=== PATIENT | male | born 1980 | race American Indian/Alaskan Native ===

== ENCOUNTER 2021-12-23 11:25 | Emergency (ER) | payer SELFPAY ==
--- NOTE | 2021-12-23 12:12 | XRay Report ---
CHEST 2 VIEWS INDICATION / CLINICAL INFORMATION: Chest Pain. COMPARISON: None available. FINDINGS: SUPPORT DEVICES: None. HEART / MEDIASTINUM: No significant abnormality. LUNGS / PLEURA: No significant pulmonary or pleural abnormality. No pneumothorax. ADDITIONAL FINDINGS: No significant additional findings. IMPRESSION: 1. No acute findings. Signer Name: Luis M Bragg MD Signed: 12/23/2021 12:08 PM Workstation Name: [facility] [employer]
[2021-12-23 14:09] LABS: Basophils # (Auto) 0.1 K/mm3 (0.0-0.1); Basophils % (Auto) 0.5 % (0.0-1.8); Eosinophils % (Auto) 0.2 % (0.0-4.3); Hematocrit 48.8 % (35.5-45.6); Hemoglobin 16.3 gm/dl (11.8-15.2); Lymphocytes # (Auto) 2.4 K/mm3 (1.2-5.4); Lymphocytes % (Auto) 19.1 % (13.4-35.0); Mean Corpuscular HGB Conc 33 % (32-34); Mean Corpuscular Volume 96 fl (84-94); Monocytes # (Auto) 0.8 K/mm3 (0.0-0.8); Monocytes % (Auto) 6.1 % (0.0-7.3); Platelet Count 239 K/mm3 (140-440); Red Blood Count 5.09 M/mm3 (3.65-5.03); Red Cell Distribution Width 14.8 % (13.2-15.2)
[2021-12-23 14:34] LABS: Alanine Aminotransferase 17 units/L (7-56); Albumin 4.8 g/dL (3.9-5); BUN/Creatinine Ratio 11; Blood Urea Nitrogen 10 mg/dL (9-20); Calcium 9.4 mg/dL (8.4-10.2); Hemolysis Index 13
[2021-12-24] MEDS ORDERED: SODIUM CHLORIDE 0.9% 1000 ML 1,000 ML IV ONE (03:27)
--- NOTE | 2021-12-24 03:32 | Emergency Department Report ---
ED General Adult HPI - General Chief complaint: Chest Pain Stated complaint: ABD PAIN/CHEST PAIN PUI?: No Time Seen by Provider: 12/24/21 03:23 Source: patient Limitations: No Limitations - History of Present Illness Initial comments: This is a 41-year-old male who denies past medical history and has not any medication and also no abdominal surgery in the past came in today with concerns of abdominal pain that started this past Thursday that is more of a dull jabbing sensation radiate into his chest which is also making him to have chest discomfort. Patient states movement seems to makes it worse. Patient stated that he does not feel nauseated but he has not vomited. Patient denies any other discomfort. Patient current denies any fever chill night sweat dizziness blurred vision lightheadedness headache tinnitus ear pain runny nose sore throat loss of taste loss of smell palpitation short breath cough nausea vomiting diarrhea constipation dysuria myalgia arthralgia new rash and heat or cold intolerance. Severity scale (0 -10): 5 - Related Data Previous Rx's Medication Instructions Recorded Last Taken Type Azithromycin 500 mg PO DAILY #2 12/24/21 Unknown Rx Allergies Allergy/AdvReac Type Severity Reaction Status Date / Time No Known Allergies Allergy Verified 12/23/21 11:29 ED Review of Systems ROS: Stated complaint: ABD PAIN/CHEST PAIN Other details as noted in HPI Comment: All other systems reviewed and negative ED Past Medical Hx - Past Medical History Previous Medical History?: No - Medications Home Medications: Home Medications Medication Instructions Recorded Confirmed Last Taken Type Azithromycin 500 mg PO DAILY #2 12/24/21 Unknown Rx ED Physical Exam - General Limitations: No Limitations General appearance: alert, in no apparent distress - Head Head exam: Present: atraumatic, normocephalic, normal inspection - Eye Eye exam: Present: normal appearance, PERRL, EOMI Pupils: Present: normal accommodation - ENT ENT exam: Present: normal exam - Neck Neck exam: Present: normal inspection, full ROM - Respiratory Respiratory exam: Present: normal lung sounds bilaterally - Cardiovascular Cardiovascular Exam: Present: regular rate, normal rhythm, normal heart sounds - GI/Abdominal GI/Abdominal exam: Present: soft, normal bowel sounds. Absent: distended, tenderness, guarding, rebound, rigid - Extremities Exam Extremities exam: Present: normal inspection, full ROM, normal capillary refill - Back Exam Back exam: Present: normal inspection, full ROM - Neurological Exam Neurological exam: Present: alert, oriented X3, CN II-XII intact - Psychiatric Psychiatric exam: Present: normal affect, normal mood - Skin Skin exam: Present: normal color ED Course Vital Signs 12/23/21 12/24/21 12/24/21 11:26 00:22 03:32 Temperature 97.8 F 98.3 F Pulse Rate 82 82 69 Pulse Rate [ Bilateral] Respiratory 16 18 15 Rate Respiratory Rate [Bilateral ] Blood Pressure 147/81 Blood Pressure 144/91 166/95 [Left] O2 Sat by Pulse 100 98 100 Oximetry 12/24/21 12/24/21 05:09 05:24 Temperature Pulse Rate 66 Pulse Rate [ 68 Bilateral] Respiratory 14 Rate Respiratory 18 Rate [Bilateral ] Blood Pressure Blood Pressure 145/70 [Left] O2 Sat by Pulse 97 Oximetry - Reevaluation(s) Reevaluation #1: 12/24/21 05:16 Potassium increased; will give Lasix and Duoneb and recheck lab. Patient have mildly elevated WBC and CT with mild diffuse small bowel enteritis; I will give azithromycin 500mg daily for 3 days per UP-TO-DATE. Will recheck potassium to ensure downtrend. 12/24/21 05:17 ED Medical Decision Making - Lab Data Result diagrams: 12/24/21 03:44 12/24/21 05:56 Critical care attestation.: If time is entered above; I have spent that time in minutes in the direct care of this critically ill patient, excluding procedure time. ED Disposition Clinical Impression: Enteritis, Non-cardiac chest pain, Hyperkalemia Disposition: 01 HOME / SELF CARE / HOMELESS Is pt being admited?: No Does the pt Need Aspirin: No Condition: Stable Instructions: Viral Gastroenteritis, Adult, [id number], Hyperkalemia, [id number], Nonspecific Chest Pain, Adult Additional Instructions: Take antibiotics (azithromycin) that's prescribed for you and make a follow up appointment with your primary care provider to be seen within 3 days and have your provider recheck your potassium level and also reevaluate your "mild diffuse small bowel enteritis" that revealed on CT scan. Prescriptions: Azithromycin 500 mg PO DAILY #2 Time of Disposition: 05:21
[2021-12-24 03:53] LABS: Hematocrit 49.4 % (35.5-45.6); Mean Corpuscular HGB Conc 32 % (32-34); Mean Corpuscular Volume 99 fl (84-94); Platelet Count 201 K/mm3 (140-440); Red Blood Count 5.01 M/mm3 (3.65-5.03); Red Cell Distribution Width 14.8 % (13.2-15.2)
[2021-12-24 04:07] LABS: Mucus,Urine 3+ /HPF
[2021-12-24 04:10] LABS: Amphetamine Screen,Urine Negative; Benzodiazepines Screen,Urine Negative; Cocaine Screen,Urine Negative; Methadone Screen,Urine Negative; Opiate Screen,Urine Negative
[2021-12-24 04:12] LABS: Alanine Aminotransferase 17 units/L (7-56); Albumin 4.5 g/dL (3.9-5); BUN/Creatinine Ratio 13; Blood Urea Nitrogen 12 mg/dL (9-20); Calcium 9.1 mg/dL (8.4-10.2); Hemolysis Index 176
--- NOTE | 2021-12-24 04:26 | Cat Scan Report ---
CT ABDOMEN AND PELVIS WITHOUT CONTRAST INDICATION / CLINICAL INFORMATION: periumbiliar abdomional pain comes na dgoes. TECHNIQUE: Axial CT images were obtained through the abdomen and pelvis without IV contrast. All CT scans at [facility] location are performed using CT dose reduction for ALARA by means of automated exposure control. COMPARISON: None available. FINDINGS: LOWER CHEST: No significant abnormality. LIVER: No significant abnormality. GALLBLADDER: No significant abnormality. BILE DUCTS: No significant abnormality. PANCREAS: No significant abnormality. SPLEEN: No significant abnormality. ADRENALS: No significant abnormality. RIGHT KIDNEY and URETER: No significant abnormality. LEFT KIDNEY and URETER: No significant abnormality. STOMACH and SMALL BOWEL: There appears to be some thickening involving multiple small bowel loops inv olving the small bowel mucosa.. COLON: Much of the colon is coated with contrast material. APPENDIX: No significant abnormality. PERITONEUM: No free fluid. No free air. No fluid collection. LYMPH NODES: No significant adenopathy. AORTA and ARTERIES: No significant abnormality. IVC and VEINS: No significant abnormality. URINARY BLADDER: No significant abnormality. REPRODUCTIVE ORGANS: No significant abnormality. ADDITIONAL FINDINGS: None. SKELETAL SYSTEM: No significant abnormality. IMPRESSION: Mild diffuse small bowel enteritis. Signer Name: Deion Mackey MD Signed: 12/24/2021 4:22 AM Workstation Name: [employer]
[2021-12-24 04:33] LABS: Color,Urine Yellow (Yellow)
[2021-12-24 04:38] LABS: Cannabinoid Screen,Urine Positive
[2021-12-24] MEDS ORDERED: IPRATROPIUM/ALBUTEROL SULFATE 3 ML AMPUL.NEB IH ONE (04:55)
[2021-12-24] MEDS ORDERED: FUROSEMIDE 20 MG/2 ML INJ IV ONE (04:55)
[2021-12-24] MEDS ORDERED: AZITHROMYCIN 250 MG TAB PO ONE (05:21)
[2021-12-24 07:32] VITALS: BP 140/75
--- NOTE | 2021-12-24 13:14 | Electrocardiograph Report ---
[facility] Test Date: 2021-12-23 Test Time: 11:17:03 Pat Name: CLIFF HARTLEY Department: Room: Gender: M [employer] Machine Setter/Set Up Operator: GP : 1980 Requested By: ED DOC Order Number: [id number] Reading MD: Nadya Lawrence Measurements Intervals [place] Rate: 59 P: 62 LA: 108 QRS: 74 QRSD: 78 T: 62 QT: 387 QTc: 385 Interpretive Statements Sinus bradycardia Otherwise normal ECG No previous ECG available for comparison Electronically Signed On 12-24-2021 13:14:34 EDT by Nadya Lawrence
== END 2021-12-24 06:20 | disposition home or self-care (01) ==
LOC: ED 11:25
DX: K52.9 Noninfective gastroenteritis and colitis, unspecified (principal); R07.9 Chest pain, unspecified; E87.5 Hyperkalemia; Z79.899 Other long term (current) drug therapy
CPT/HCPCS: 36415; 71046; 74176; 80053; 80307; 81001; 82550; 83690; 84132; 84484; 85025; 85027; 87086; 93005; 94640; 96361; 96374; 99285; J1940; J7030; 94644